=== PATIENT | male | born 1995 | race Caucasian/White ===

== ENCOUNTER 2017-06-20 13:39 | Emergency (ER) | payer BC ==
[~2017-06-20] VITALS: Ht 185.4 cm; Wt 80.3 kg
[~2017-06-20 13:39] MED LIST: EPP3/2 IM; IBUP-103 PO
[2017-06-20 13:48] VITALS: TEMP 36.6; Ht 185.4 cm; Wt 80.3 kg
[2017-06-20] MEDS ORDERED: METHYLPREDNISOLONE 125 MG VIAL IV STA (14:04)
[2017-06-20] MEDS ORDERED: RANITIDINE HCL 50 MG/100 ML D5W IV STA (14:13)
[2017-06-20 14:21] LABS: BASO % 0.4 %; BASO ABS # 0.03 K/uL (0-0.2); COMPLETE YES; EOS % 1.5 %; HEMATOCRIT 51.3 % (42-52); IG% 0.1 %; LYMPH % 22.3 %; MEAN CELL VOLUME 88.3 fL (80-100); MEAN CORPUSCULAR HEMOGLOBIN 29.9 pg (25-34); MEAN CORPUSCULAR HGB CONC 33.9 g/dl (32-36); MEAN PLATELET VOLUME 9.1 fL (7.4-10.4); MONO % 10.4 %; NEUT % 65.3 %; PLATELET COUNT 250 K/uL (130-400); RED BLOOD COUNT 5.81 M/uL (4.7-6.1); WHITE BLOOD COUNT 6.72 K/uL (4.8-10.8)
[2017-06-20 14:40] LABS: BUN/CREATININE RATIO 21.7 (10-20); CALCIUM 9.5 mg/dl (8.5-10.1); CREATININE 1.1 mg/dl (0.60-1.40); POTASSIUM 3.7 mmol/L (3.5-5.1)
[2017-06-20 14:43] LABS: ALB/GLOB RATIO 1.2 (0.9-2)
[2017-06-20] MEDS ORDERED: EPP3/2 IM (15:02)
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
[2017-06-20] MEDS ORDERED: METH4PAK PO (15:34)
[2017-06-20 15:50] VITALS: BP 107/70; PULSE 98; O2SAT 98
== END 2017-06-20 15:50 | disposition home or self-care (01) ==
LOC: C.EDB 13:40
DX: T78.40XA Allergy, unspecified, initial encounter (principal); X58.XXXA Exposure to other specified factors, initial encounter

== ENCOUNTER → 2017-07-26 | Outpatient (CLI) | payer BC ==
[~2017-07-26] MED LIST changes: -IBUP-103 PO
--- NOTE | 2017-07-26 09:43 | DIAGNOSTIC IMAGING REPORT ---
RIGHT SHOULDER 3 VIEWS HISTORY: RIGHT SHOULDER PAIN COMPARISON: None. FINDINGS: There is no fracture or dislocation. Soft tissues are unremarkable. No radiopaque foreign bodies. The right clavicle is intact. Cartilage spaces are maintained. IMPRESSION: Unremarkable right shoulder. Electronically signed by: Amadou Hill M.D. 07/26/2017 9:42 AM Dictated Date/Time: 07/26/2017 9:41 AM
== END ==
LOC: C.RDSM 09:20
PROVIDERS: ATTEND Internal Medicine
DX: M25.511 Pain in right shoulder (principal)

== ENCOUNTER 2017-12-02 16:05 | Emergency (ER) | payer BC ==
[~2017-12-02] VITALS: Ht 182.9 cm; Wt 84.5 kg
[2017-12-02] MEDS ORDERED: SODIUM CHLORIDE 0.9% 1000ML 1,000 ML IV STA ×3 (16:07→17:14)
[2017-12-02] MEDS ORDERED: METHYLPREDNISOLONE 125 MG VIAL IV STA (16:07)
[2017-12-02] MEDS ORDERED: RANITIDINE HCL 50 MG/100 ML D5W IV STA (16:07)
[2017-12-02] MEDS ORDERED: DiphenhydrAMINE HCL 50 MG/ML VIAL IV STA (16:07)
[2017-12-02 16:08] VITALS: Ht 182.9 cm; Wt 84.5 kg
[2017-12-02] MEDS ORDERED: EPINEPHRINE ADULT AUTO-INJECT 0.3 MG SYR IM STA (16:08)
[2017-12-02] MEDS ORDERED: ONDANSETRON INJ 2 MG/ML 2 ML VIAL IV STA (16:09)
[2017-12-02] MEDS ORDERED: EpINEphrine INJ 1MG/ML AMP 1 MG/ML AMP SQ STA (16:09)
[2017-12-02] MEDS ORDERED: ONDANSETRON INJ 2 MG/ML 2 ML VIAL ONE (16:10)
[2017-12-02] MEDS ORDERED: METOCLOPRAMIDE HCL INJ 5 MG/ML 2 ML VIAL IV STA (16:13)
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
[2017-12-02 16:25] VITALS: TEMP 36.5
[2017-12-02] MEDS ORDERED: RANI150T3 PO (19:55)
[2017-12-02] MEDS ORDERED: PRED20TA2 PO (19:55)
[2017-12-02] MEDS ORDERED: EPP3/2 IM (19:55)
[2017-12-02 20:08] VITALS: BP 117/52; PULSE 88; O2SAT 99
== END 2017-12-02 20:09 | disposition home or self-care (01) ==
LOC: C.EDB 16:06
DX: T78.01XA Anaphylactic reaction due to peanuts, initial encounter (principal); T78.40XA Allergy, unspecified, initial encounter; X58.XXXA Exposure to other specified factors, initial encounter; Z91.010 Allergy to peanuts; Z79.899 Other long term (current) drug therapy